=== PATIENT | male | born 1995 | race Caucasian/White ===

== ENCOUNTER 2018-09-03 15:14 | Emergency (ER) | payer OTHER ==
[2018-09-03] MEDS: ONDANSETRON (ODT) 4 MG TAB ODT (16:47)
== END 2018-09-03 16:50 | disposition home or self-care (01) ==
LOC: FTE 15:14
DX: A08.4 Viral intestinal infection, unspecified (principal)
CPT/HCPCS: 99283; Z7502